=== PATIENT | female | born 1955 | race Caucasian/White ===

== ENCOUNTER 2021-07-15 16:57 | Inpatient (IN) | payer OTHER ==
[~2021-07-15] VITALS: Ht 162.6 cm; Wt 88.5 kg
[~2021-07-15 16:57] MED LIST: MEDROL DOSEPAK 24 MG PO
[2021-07-15 18:51] LABS: HEMOGLOBIN 14.3 gm/dl (12.3-15.3); RED BLOOD COUNT 4.5 M/UL (4.00-5.10); WHITE BLOOD COUNT 4.3 K/UL (4.5-11.0)
[2021-07-15 19:12] LABS: BUN/CREATININE RATIO 16 (0-10)
[2021-07-16 04:30] LABS: HEMOGLOBIN 13.4 gm/dl (12.3-15.3); RED BLOOD COUNT 4.25 M/UL (4.00-5.10)
[2021-07-16 04:41] LABS: WHITE BLOOD COUNT 2.1 K/UL (4.5-11.0)
[2021-07-16 04:52] LABS: BUN/CREATININE RATIO 24 (0-10)
[2021-07-16] MEDS ORDERED: CITALOPRAM HBR20 MG PO (13:51)
[2021-07-16] MEDS ORDERED: LOSARTAN POTASS25 MG PO (13:52)
[2021-07-16] MEDS ORDERED: GLYBURIDE5 MG PO (13:53)
[2021-07-16] MEDS ORDERED: METFORMIN HCL500 MG PO (13:53)
[2021-07-16] MEDS ORDERED: ZYRTEC10 MG PO (13:54)
[2021-07-17 02:58] LABS: HEMOGLOBIN 12.9 gm/dl (12.3-15.3); RED BLOOD COUNT 4.11 M/UL (4.00-5.10)
[2021-07-17 03:04] LABS: WHITE BLOOD COUNT 3.3 K/UL (4.5-11.0)
[2021-07-17 03:26] LABS: BUN/CREATININE RATIO 30 (0-10)
[2021-07-18 07:56] LABS: HEMOGLOBIN 12.4 gm/dl (12.3-15.3); RED BLOOD COUNT 3.99 M/UL (4.00-5.10); WHITE BLOOD COUNT 3.4 K/UL (4.5-11.0)
[2021-07-18 09:04] LABS: BUN/CREATININE RATIO 24 (0-10)
[2021-07-18] MEDS ORDERED: DECADRON6 MG PO (13:03)
[2021-07-19 06:51] LABS: HEMOGLOBIN 11.9 gm/dl (12.3-15.3); RED BLOOD COUNT 3.95 M/UL (4.00-5.10); WHITE BLOOD COUNT 3.1 K/UL (4.5-11.0)
[2021-07-19 07:00] LABS: BUN/CREATININE RATIO 19 (0-10)
== END 2021-07-19 16:21 | disposition home or self-care (01) | DRG 177 ==
LOC: ER1 16:57 → CDU 20:32 → M/S 20:32
PROVIDERS: Internal Medicine; Physician Assistant; ADMIT Internal Medicine
PROC: 3E0333Z Introduction of Anti-inflammatory into Peripheral Vein, Percutaneous Approach (ICD-10-PCS; 2021-07-15)
PROC: 8E0ZXY6 Isolation (ICD-10-PCS; principal; 2021-07-16)
PROC: XW033E5 Introduction of Remdesivir Anti-infective into Peripheral Vein, Percutaneous Approach, New Technology Group 5 (ICD-10-PCS; 2021-07-16)
DX: U07.1 COVID-19 (principal); J12.82 Pneumonia due to coronavirus disease 2019; J96.01 Acute respiratory failure with hypoxia; E11.9 Type 2 diabetes mellitus without complications; I10 Essential (primary) hypertension; E87.6 Hypokalemia; E78.5 Hyperlipidemia, unspecified; Z85.3 Personal history of malignant neoplasm of breast; Z90.13 Acquired absence of bilateral breasts and nipples; Z90.710 Acquired absence of both cervix and uterus; Z79.899 Other long term (current) drug therapy; Z84.89 Family history of other specified conditions; Z79.84 Long term (current) use of oral hypoglycemic drugs
CPT/HCPCS: 36415; 36600; 71045; 71275; 80048; 80053; 82550; 82553; 82803; 82962; 83605; 83615; 83735; 83874; 83880; 84100; 84132; 84484; 85025; 85027; 85379; 86140; 87040; 94640; 94664; 94760; 96374; 96375; 99285; J0696; J1100; J1650; J7030; Q9967; U0002

== ENCOUNTER → 2022-06-17 | Outpatient (CLI) | payer MEDICARE, OTHER ==
[~2022-06-17] MED LIST changes: +CITALOPRAM HBR20 MG PO; +DECADRON6 MG PO; +GLYBURIDE5 MG PO; +LOSARTAN POTASS25 MG PO; +METFORMIN HCL500 MG PO; +ZYRTEC10 MG PO
== END ==
LOC: KOH-I 11:30
DX: R10.31 Right lower quadrant pain (principal); R16.1 Splenomegaly, not elsewhere classified
CPT/HCPCS: 74176

== ENCOUNTER → 2022-07-01 | Outpatient (CLI) | payer MEDICARE, OTHER | LOC: CT 13:30 | DX: R10.31 Right lower quadrant pain (principal); N28.9 Disorder of kidney and ureter, unspecified; K11.20 Sialoadenitis, unspecified; K80.20 Calculus of gallbladder without cholecystitis without obstruction; Q61.02 Congenital multiple renal cysts | CPT/HCPCS: 70490; 73502; 74170; Q9967 ==

== ENCOUNTER → 2022-08-02 | Outpatient (CLI) | payer MEDICARE, OTHER | LOC: MRI 07:48 | DX: K80.20 Calculus of gallbladder without cholecystitis without obstruction (principal) | CPT/HCPCS: 74181 ==